=== PATIENT | male | born 1990 | race American Indian/Alaskan Native ===

== ENCOUNTER 2017-01-17 08:46 | Emergency (ER) | payer OTHER, BC ==
[2017-01-17] MEDS ORDERED: FLEXERIL PO ONE (11:19)
[2017-01-17] MEDS ORDERED: TORADOL IM ONE (11:19)
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
[2017-01-17 13:15] VITALS: BP 124/78
== END 2017-01-17 13:14 | disposition home or self-care (01) ==
LOC: ED 08:46
DX: M25.511 Pain in right shoulder (principal); Z88.1 Allergy status to other antibiotic agents; Z88.0 Allergy status to penicillin; V89.2XXA Person injured in unspecified motor-vehicle accident, traffic, initial encounter; Y93.89 Activity, other specified; Y99.9 Unspecified external cause status; Y92.410 Unspecified street and highway as the place of occurrence of the external cause
CPT/HCPCS: 73030; 96372; 99283; J1885